=== PATIENT | female | born 1950 | race Caucasian/White ===

== ENCOUNTER 2022-07-27 23:16 | Emergency (ER) | payer BC ==
[~2022-07-27] VITALS: Ht 152.4 cm; Wt 86.2 kg
[2022-07-27] MEDS ORDERED: ONDANSETRON ODT 4 MG TAB.RAPDIS SL ONE (23:45)
[2022-07-27] MEDS ORDERED: HYDROCODONE/APAP 10-325 MG TABLET PO ONE (23:45)
[2022-07-27] MEDS ORDERED: CLINDAMYCIN PHOSPHATE 600 MG/4 ML VIAL IM ONE (23:45)
[2022-07-27] MEDS ORDERED: HYDROCODONE/APAP 10-325 MG TABLET ONE (23:47)
[2022-07-27] MEDS ORDERED: ONDANSETRON ODT 4 MG TAB.RAPDIS ONE (23:47)
[2022-07-27] MEDS ORDERED: CLINDAMYCIN 900MG/D5W 100ML IVPB **ER PYXIS ONLY IJ ONE (23:48)
[2022-07-28] MEDS ORDERED: CLINDAMYCIN PHOSPHATE IV 900 MG in IV DEXTROSE 5% 100 ML IV ONE ×2
[2022-07-28] MEDS ORDERED: HYDR-4209 PO (00:33)
[2022-07-28] MEDS ORDERED: ONDA4TAB5 PO (00:33)
[2022-07-28] MEDS ORDERED: CLIN300C12 PO (00:33)
--- NOTE | 2022-07-28 00:48 | NUR ---
Patient discharged to home in stable condition. Written and verbal after care instructions given. Patient verbalizes understanding of instructions. Stressed follow up or return to ER for worsening s/s. Patient out of ER with steady gait, no acute signs of distress, VSS, all belongings taken, IV site discontinued, to be driven home by via private vehicle.
[2022-07-28 00:49] VITALS: BP 138/77
== END 2022-07-28 00:49 | disposition home or self-care (01) ==
LOC: ER 23:16
DX: L03.116 Cellulitis of left lower limb (principal); Z88.0 Allergy status to penicillin; Z88.2 Allergy status to sulfonamides; R03.0 Elevated blood-pressure reading, without diagnosis of hypertension
CPT/HCPCS: 99284; 96365; J3490; A4663; Q0162